=== PATIENT | female | born 1930 | race Caucasian/White ===

== ENCOUNTER → 2016-07-01 | Outpatient (CLI) | payer MEDICARE ==
[~2016-07-01] MED LIST: ACETAMINOPHEN650 MG RC; ACETAZOLAMIDE250 MG PO; AGGRENOX 25 MG-1 CER PO; ALBUTEROL 3 ML 33 ML INH; ALEVE220 MG PO; AMBIEN5 MG PO; ANASPAZ0.125 MG SL; ASCRIPTIN325 MG; ASPERDRINK81 MG PO; ASPIRIN LOW DOS81 M1 PO; ASPIRIN81 M1 PO; BENADRYL25 M1 PO; BENADRYL25 M2 PO; CARAFATE1 G1 PO; CITRACAL + D 311 TAB PO; CITRACAL ULTRAD1 TA1 PO; COUMADIN1 M1 PO; COUMADIN2 M1 PO; DARVOCET N 1001 TAB PO; DIAMOX125 MG PO; DIOVAN160 M1 PO; DOXYCYCLINE100 M3 PO; Duoneb 3ML 3 MG/3 ML INH; FLEET ENEMA 13135 ML R; GLYCERIN SUPPOS1 SU4 RC; HYDRALAZINE10 MG PO; HYOSCYAMINE0.125 M5 PO; HYPERTENSION MED; IMDUR SA60 M1 PO; IMDUR30 MG PO; JANTOVEN1 MG PO; K-Dur 20MEQ20 MEQ PO; KRISS PO; LABETALOL HCL100 MG PO; LABETALOL200 MG PO; LASIX20 MG PO; LASIX40 MG PO; LIDODERM 5% PATC1 EA PO; LIDODERM 5% PATC1 EA T; LISINOPRIL10 MG PO; LISINOPRIL20 MG PO; LOTREL 10 MG-201 CAP PO; MACROBID100 M1 PO; METOPROLOL50 MG PO; MOBIC7.5 MG PO; MOM30 ML PO; MOTRIN800 MG PO; MUCINEX DM 30/61 TAB PO; NEURONTIN300 MG PO; NEXIUM40 MG PO; NORCO 5-325 TA1 EACH PO; NORTRIPTYLINE10 MG PO; NORVASC10 MG PO; NORVASC5 MG PO; OMEPRAZOLE20 MG PO; OSCAL ULTRA 6001 TA1 PO; OSCAL/D,OYSTER250 MG PO; OXYGEN; PREDNICOT20 MG PO; PREDNISONE10 MG PO; PROAIR HFA8.5 GM IH; PROTONIX40 MG PO; PYRIDIUM200 MG PO; RESTORIL15 MG PO; SENNA LAX8.6 M1 PO; SIMVASTATIN20 MG PO; SOAP SUDS ENEMA R; SYMBICORT1 AE1 INH; SYNTHROID,LEVO88 MCG PO; SYNTHROID0.1 MG PO; Synthroid,Levo75 MCG PO; TYLENOL325 M1 PO; UNKNOWN INHALER; VENTOLIN 02.5 MG/3 M INH; VENTOLIN 02.5 MG/3 M NEB; VICO10300 PO; VICODIN 500 MG-1 TAB PO; VITAMIN D1000 IU PO; VITAMIN D2000 IU PO; WATER PILL; ZITHROMAX Z PA250 MG PO
[2016-07-01 15:32] LABS: BASO % 0.3 % (0.0-1.0); EOS # 0.8 10*3/uL (0.0-0.4); EOS % 12.5 % (1.0-4.0); HEMATOCRIT 34.5 % (37.0-47.0); HEMOGLOBIN 11.5 g/dl (12.0-16.0); LYMPH % 16.4 % (27.0-41.0); MEAN CELL VOLUME 89.8 fl (81.0-99.0); MEAN CORPUSCULAR HGB 29.9 pg (27.0-31.0); MEAN CORPUSCULAR HGB CONC 33.3 g/dl (33.0-37.0); MEAN PLATELET VOLUME 11.4 fl (9.6-12.3); MONO # 0.5 10*3/uL (0.1-1.0); MONO % 7.3 % (3.0-9.0); NEUT # 3.9 10*3/uL (2.3-7.9); NEUT % 63.2 % (47.0-73.0); PLATELET COUNT AUTOMATED 167 10*3/uL (130-400); RED BLOOD COUNT 3.84 10*6/uL (4.10-5.10); RED CELL DISTRI WIDTH 13.8 % (0-14.5); WHITE BLOOD COUNT 6.2 10*3/uL (4.8-10.8)
== END | disposition home or self-care (01) ==
LOC: LAB 15:17
PROVIDERS: Nurse Practitioner Family
DX: D64.9 Anemia, unspecified (principal); R53.83 Other fatigue

== ENCOUNTER → 2016-07-19 | Outpatient (CLI) | payer MEDICARE ==
[2016-07-19 10:17] LABS: POTASSIUM 4.5 mmol/L (3.5-5.1)
== END | disposition home or self-care (01) ==
LOC: LAB 09:40
PROVIDERS: Internal Medicine
DX: E87.6 Hypokalemia (principal)

== ENCOUNTER → 2016-10-03 | Outpatient (CLI) | payer MEDICARE | END | disposition home or self-care (01) | LOC: CARD 02:11 | DX: I05.2 Rheumatic mitral stenosis with insufficiency (principal); R06.00 Dyspnea, unspecified ==

== ENCOUNTER → 2016-11-14 | Outpatient (CLI) | payer MEDICARE | END | disposition home or self-care (01) | LOC: LAB 13:03 | DX: D86.0 Sarcoidosis of lung (principal) ==

== ENCOUNTER → 2017-10-17 | Outpatient (CLI) | payer MEDICARE ==
[~2017-10-17] MED LIST changes: +ATORVASTATIN CA20 M1 PO; +CARDIZEM CD240 M1 PO; +IMDUR SA30 MG PO; +NITROSTAT0.4 MG SL; +PANTOPRAZOLE SO40 MG PO; +WARFARIN2 MG PO
--- NOTE | ~2017-10-17 | ST ---
[place], [place] EXERCISE STRESS TEST REPORT [id number] UN[facility] #: [id number] ROOM: DOCTOR: NERY BRAY MD BIRTHDATE: [birth year] DOS: 10/17/2017 LEXISCAN PORTION OF THE LEXISCAN CARDIOLITE Baseline cardiogram is sinus rhythm with a complete left bundle-branch pattern, 0.4 mg Lexiscan, duration of 10 seconds with Lexiscan, no new EKG changes. The patient did have few runs of tachyarrhythmia. Blood pressure and heart rate response was normal. Did have some shortness of breath. FINAL IMPRESSION: Indeterminate test secondary to the underlying left bundle branch block. No new EKG changes. Blood pressure and heart rate response was normal. Positive shortness of breath. Nuclear images will be reported separately. NERY BRAY MD CM:STRESS:EXERCISE STRESS TEST REPORT [id number] NERY BRAY MD
== END | disposition home or self-care (01) ==
LOC: CARD 01:56
DX: I20.8 Other forms of angina pectoris (principal); R53.81 Other malaise

== ENCOUNTER → 2018-09-19 | Outpatient (CLI) | payer MEDICARE | END | disposition home or self-care (01) | LOC: RAD 14:57 | DX: M47.816 Spondylosis without myelopathy or radiculopathy, lumbar region (principal); M25.552 Pain in left hip ==

== ENCOUNTER 2018-10-16 19:03 | Inpatient (IN) | payer MEDICARE, MEDICAID ==
[~2018-10-16] VITALS: Ht 167.6 cm; Wt 58.3 kg
--- NOTE | ~2018-10-16 | EKG ---
[place], [place] ELECTROCARDIOGRAM REPORT NAME: MONA BAILEY UNIT #: [id number] ROOM: 407 DOCTOR: DULCE DRAFT REPORT BIRTHDATE: [birth year] [facility] Test Date: 2018-10-16 Test Time: 19:48:34 Pat Name: MONA BAILEY Department: Room: 407 Gender: F General Laborer: BUDDY : 1930 Requested By: DARIEL PATEL Order Number: [id number] Reading MD: Jamie Rojas MD Measurements Intervals [place] Rate: 82 P: -45 MS: 169 QRS: -20 QRSD: 132 T: 136 QT: 424 QTc: 496 Interpretive Statements Ectopic atrial rhythm Atrial premature complex Left bundle branch block Electronically Signed On 10-23-2018 4:02:08 PDT by Jamie Rojas MD CM:EKGRPT:ELECTROCARDIOGRAM REPORT [id number] DARIEL PATEL MD EPIPHANY DRAFT REPORT DARIEL PATEL MD
--- NOTE | 2018-10-16 11:55 | NUR ---
PT'S BP ELEVATED; CALL DR. GONSALVES. ORDER RECEIVED FOR HYDRALAZINE 5 MG PO.
[2018-10-16 19:05] VITALS: BP 176/77
[2018-10-16 19:51] LABS: BASO % 0.3 % (0.0-1.0); EOS # 0.1 10*3/uL (0.0-0.4); EOS % 4.3 % (1.0-4.0); HEMATOCRIT 36.7 % (37.0-47.0); HEMOGLOBIN 11.8 g/dl (12.0-16.0); LYMPH # 0.9 10*3/uL (1.3-4.4); LYMPH % 28.2 % (27.0-41.0); MEAN CELL VOLUME 92.2 fl (81.0-99.0); MEAN CORPUSCULAR HGB 29.6 pg (27.0-31.0); MEAN CORPUSCULAR HGB CONC 32.2 g/dl (33.0-37.0); MEAN PLATELET VOLUME 10.5 fl (9.6-12.3); MONO # 0.3 10*3/uL (0.1-1.0); MONO % 9.2 % (3.0-9.0); NEUT # 1.9 10*3/uL (2.3-7.9); PLATELET COUNT AUTOMATED 202 10*3/uL (130-400); RED BLOOD COUNT 3.98 10*6/uL (4.10-5.10); RED CELL DISTRI WIDTH 13.2 % (0-14.5); WHITE BLOOD COUNT 3.3 10*3/uL (4.8-10.8)
[2018-10-16 20:07] LABS: ALBUMIN 2.8 gm/dl (3.1-4.5); ALKALINE PHOSPHATASE 125 U/L (45-117); BUN 13 mg/dl (7-24); CHLORIDE 103 mmol/L (98-107); CREATININE 1.22 mg/dL (0.55-1.02); LIPASE 56 U/L (73-393); POTASSIUM 3.7 mmol/L (3.5-5.1); SGOT/AST 12 IU/L (3-35); SGPT/ALT 11 U/L (12-78); SODIUM 139 mmol/L (136-145); TOTAL PROTEIN 6.4 gm/dL (6.4-8.2)
[2018-10-16 20:10] LABS: TROPONIN I < 0.015 ng/ml (<0.045)
[2018-10-16 20:11] LABS: ACT PARTIAL THROMBO TIME 56.4 SECONDS (20.0-32.1)
--- NOTE | 2018-10-16 20:18 | NUR ---
PROMPTED PATIENT FOR URINE AT THIS TIME, PER PATIENT UNABLE TO URINATE AT THIS TIME. PATIENT RESTING IN BED WITH FAMILY AT THE BEDSIDE. RESPIRATIONS EASY, NON-LABORED ON ROOM AIR. IV FLUIDS INFUSING PER ORDERS. CALL LIGHT WITHIN REACH. RN WILL CONTINUE TO MONITOR.
[2018-10-16 20:21] LABS: INTERNATIONAL NORM RATIO 9.3 (2.0-3.5)
--- NOTE | 2018-10-16 20:22 | NUR ---
CRITICAL INR 9.3, DR FRANCO AWARE
[2018-10-16 21:19] VITALS: BP 190/79
[2018-10-16 21:24] LABS: BILIRUBIN NEGATIVE (NEGATIVE); BLOOD 2+ (NEGATIVE); CLARITY CLEAR (CLEAR); COLOR YELLOW (YELLOW); GLUCOSE NEGATIVE (NEGATIVE); KETONE NEGATIVE (NEGATIVE); LEUKO ESTERASE NEGATIVE (NEGATIVE); NITRITE NEGATIVE (NEGATIVE); PH 5.5 (5.0-9.0); SPECIFIC GRAVITY <= 1.005 (1.005-1.030); UROBILINOGEN 0.2 E.U./dl (0.2-1.0)
[2018-10-16 21:33] LABS: BACTERIA TRACE; WBC 0-2 wbc/hpf (0-5)
[2018-10-16 22:05] VITALS: BP 167/78
--- NOTE | 2018-10-16 22:11 | NUR ---
HEALING SCAB NOTED TO LEFT ELBOW, NO OPEN AREAS NOTED TO PATIENT BUTTOCK
[2018-10-16 23:00] VITALS: BP 182/80; BP 186/68
--- NOTE | 2018-10-16 23:00 | NUR ---
A 88, admitted to 4E, under the services of ALEXI Pollack DO with a diagnosis of GI BLEED. Chief complaint is HIGH INR. Patient arrived via stretcher from ER. Monitor applied. Initial assessment completed. Vital signs taken and recorded. ALEXI POLLACK DO notified of admission to the unit. Orders received. See assessment for past medical history, medications and allergies. Patient and/or family oriented to unit. [facility] visitation policy reviewed. Clothing/patient valuable form completed. ABI DREW
--- NOTE | 2018-10-16 23:20 | NUR ---
NOTIFIED DR. GONSALVES OF PT'S ELEVATED BP; ORDER RECEIVED FOR HYDRALAZINE 5 MG PO.
--- NOTE | 2018-10-16 23:30 | NUR ---
INFORMED DR. BOURGEOIS THAT PATIENT DOES NOT KNOW WHAT MEDICATIONS SHE TAKES. MED REC WILL HAVE TO BE UPDATED IN THE MORNING. PT. USES [facility] [employer] [facility].
--- NOTE | 2018-10-17 00:25 | NUR ---
MEDICATED WITH RESTORIL FOR C/O INSOMNIA & HYDRALAZINE FOR ELEVATED BP. IV FLUIDS INFUSING ORDERED; SITE ASYMPTOMATIC.
[2018-10-17 04:00] VITALS: BP 176/72
--- NOTE | 2018-10-17 04:01 | NUR ---
PT. REFUSES JESSE DIAL/JUDIT'S.
--- NOTE | 2018-10-17 04:05 | NUR ---
CALLED DR. GONSALVES WITH PATIENT'S ELEVATED BP.
--- NOTE | 2018-10-17 05:04 | NUR ---
MEDICATED WITH APRESOLINE FOR ELEVATED BP.
--- NOTE | 2018-10-17 06:38 | NUR ---
INFORMED DR. GONSALVES OF PT'S SCABBED AREA ON LEFT ARM. WOUND CLEANSED & BANDAID APPLIED EARLIER IN SHIFT.
--- NOTE | 2018-10-17 06:49 | NUR ---
MONA BAILEY [id number] Please refer to the physician's history and physical for past medical history, comorbid conditions, and allergies. Diagnosis: RECTAL BLEED WARFARIN-INDUCED COAGULOPATHY Basim Score: 19,LOW OR NO RISK WOUND DESCRIPTIONS: Wound Number: 1 Location of the wound: left arm Type of wound: skin tear Thickness: Partial Size: 1.5cm x 0.8cm x 0.1cm Tunneling: none Undermining: none Sinus Tract: none Presence of Exudate: Sanguineous Amount: Light Color: Red Odor: None Periwound Skin Appearance: Normal Wound edges: approximated Pain (associated with wound): none at time of assessment How does patient state this happened? pt stated she bumped her arm Surface the patient is resting on: Position Pro SKIN PREVENTION RECOMMENDATION: 1. Pressure redistribution support surface as appropriate 2. Elevate heels 3. Remove boots/TEDS every shift and reapply 4. Head of bed 30 degrees as tolerated 5. Assess nutrition and hydration 6. Manage moisture 7. Avoid the use of containment devices while in bed 8. Use absorptive products on surfaces limit layers of linens on bed 9. Turn and reposition every 1-2 hours in bed and every 1 hour in chair as tolerated 10. Weight shifts every 15 minutes while up in chair 11. Offloading with pillows or device to keep heels elevated off bed 12. Monitor skin at least every shift 13. Inspect under medical devices twice a day WOUND TREATMENT RECOMMENDATIONS: Skin tear guidelines: Cleanse left arm with nss and apply sureprep around the wound hydrogel to wound bed and cover with optifoam gentle.
[2018-10-17 07:02] LABS: BASO % 0.3 % (0.0-1.0); EOS # 0.1 10*3/uL (0.0-0.4); EOS % 3.6 % (1.0-4.0); HEMATOCRIT 35.7 % (37.0-47.0); HEMOGLOBIN 11.5 g/dl (12.0-16.0); MEAN CORPUSCULAR HGB 29.9 pg (27.0-31.0); MEAN CORPUSCULAR HGB CONC 32.2 g/dl (33.0-37.0); MEAN PLATELET VOLUME 10.5 fl (9.6-12.3); MONO # 0.3 10*3/uL (0.1-1.0); MONO % 9.6 % (3.0-9.0); NEUT # 1.9 10*3/uL (2.3-7.9); NEUT % 57.2 % (47.0-73.0); PLATELET COUNT AUTOMATED 186 10*3/uL (130-400); RED BLOOD COUNT 3.84 10*6/uL (4.10-5.10); RED CELL DISTRI WIDTH 13.2 % (0-14.5); WHITE BLOOD COUNT 3.3 10*3/uL (4.8-10.8)
[2018-10-17 07:41] LABS: ALBUMIN 2.6 gm/dl (3.1-4.5); ALKALINE PHOSPHATASE 114 U/L (45-117); BUN 11 mg/dl (7-24); CHLORIDE 107 mmol/L (98-107); CREATININE 0.94 mg/dL (0.55-1.02); PHOSPHOROUS 3.6 mg/dL (2.5-4.9); POTASSIUM 3.4 mmol/L (3.5-5.1); SGOT/AST 11 IU/L (3-35); SGPT/ALT 13 U/L (12-78); SODIUM 141 mmol/L (136-145); TOTAL PROTEIN 5.8 gm/dL (6.4-8.2)
[2018-10-17 07:48] LABS: INTERNATIONAL NORM RATIO 2.6 (2.0-3.5)
[2018-10-17 08:00] VITALS: BP 156/60
--- NOTE | 2018-10-17 09:00 | NUR ---
Typesetting Supervisor in to talk to patient. Patient states lives at home with alone. There are few steps in the home. Physician: jessica mcmahon Pharmacy: [facility] health services: none Patient's level of ADLs: INDEPENDENT Patient has working utilities: all working DME: cane, walker, nebulizer, cpap Follow-up physician's appointment after d/c: will be made by hospitalist nurse director upon discharge Does patient want to access PORTAL?: no Discharge plan discussed with patient, patient lives at home alone, she is independent in adls and ambualtion, doesn't drive but has family and friends that take her to appointment and anywhere else she needs to go, patient states she will be going home when able, also discussed with her VNA and she stated she has had VNA services in the past and doesn't feel she needs them at this time, case management will follow. RORY AGUILAR
--- NOTE | 2018-10-17 09:50 | NUR ---
Dr. Rodriguez notified of wound care recommendations.
--- NOTE | 2018-10-17 14:05 | NUR ---
The Discharge Plan/Instructions have been completed.
== END 2018-10-17 14:05 | disposition home or self-care (01) | DRG 813 ==
LOC: ED 19:03 → 4E 22:24 → EDHOLD 22:24 → 4E 22:56
PROVIDERS: Emergency Medicine Emergency Medical Services; Student in an Organized Health Care Education/Training Program; ADMIT Emergency Medicine
DX: D68.32 Hemorrhagic disorder due to extrinsic circulating anticoagulants (principal); K62.5 Hemorrhage of anus and rectum; T45.515A Adverse effect of anticoagulants, initial encounter; K21.9 Gastro-esophageal reflux disease without esophagitis; N18.3 Chronic kidney disease, stage 3 (moderate); D64.9 Anemia, unspecified; J44.9 Chronic obstructive pulmonary disease, unspecified; I12.9 Hypertensive chronic kidney disease with stage 1 through stage 4 chronic kidney disease, or unspecified chronic kidney disease; Z90.710 Acquired absence of both cervix and uterus; Z90.49 Acquired absence of other specified parts of digestive tract; Z95.1 Presence of aortocoronary bypass graft; Z82.49 Family history of ischemic heart disease and other diseases of the circulatory system; Z88.2 Allergy status to sulfonamides; Z82.3 Family history of stroke; Z86.718 Personal history of other venous thrombosis and embolism; Z86.73 Personal history of transient ischemic attack (TIA), and cerebral infarction without residual deficits; Z79.82 Long term (current) use of aspirin; Z80.9 Family history of malignant neoplasm, unspecified; Y92.89 Other specified places as the place of occurrence of the external cause

== ENCOUNTER → 2018-10-16 | Outpatient (CLI) | payer MEDICARE, MEDICAID ==
[2018-10-16 17:15] LABS: INTERNATIONAL NORM RATIO > 9.3 (2.0-3.5)
== END | disposition home or self-care (01) ==
LOC: LAB 15:46
PROVIDERS: Physician Assistant
DX: I48.0 Paroxysmal atrial fibrillation (principal)

== ENCOUNTER → 2019-03-26 | Outpatient (CLI) | payer MEDICARE | END | disposition home or self-care (01) | LOC: CT 03-18 11:00 | DX: K57.92 Diverticulitis of intestine, part unspecified, without perforation or abscess without bleeding (principal); I25.10 Atherosclerotic heart disease of native coronary artery without angina pectoris; M54.42 Lumbago with sciatica, left side; I10 Essential (primary) hypertension; G89.29 Other chronic pain; K21.9 Gastro-esophageal reflux disease without esophagitis; N26.1 Atrophy of kidney (terminal); R63.4 Abnormal weight loss; Z90.710 Acquired absence of both cervix and uterus ==

== ENCOUNTER → 2019-05-01 | Day surgery (SDC) | payer MEDICARE ==
[~2019-05-01] VITALS: Ht 167.6 cm; Wt 55.3 kg
[2019-05-01 07:00] VITALS: BP 149/78; BP 179/70
[2019-05-01 07:52] VITALS: BP 119/39
[2019-05-01 08:07] VITALS: BP 142/56
[2019-05-01 08:22] VITALS: BP 142/52
== END | disposition home or self-care (01) ==
LOC: SDC 04-26 13:15
DX: K29.50 Unspecified chronic gastritis without bleeding (principal); K44.9 Diaphragmatic hernia without obstruction or gangrene; I25.10 Atherosclerotic heart disease of native coronary artery without angina pectoris; J44.9 Chronic obstructive pulmonary disease, unspecified; K21.9 Gastro-esophageal reflux disease without esophagitis; I25.2 Old myocardial infarction; Z86.73 Personal history of transient ischemic attack (TIA), and cerebral infarction without residual deficits; Z98.890 Other specified postprocedural states; Z95.5 Presence of coronary angioplasty implant and graft; Z79.899 Other long term (current) drug therapy; Z82.49 Family history of ischemic heart disease and other diseases of the circulatory system; Z83.3 Family history of diabetes mellitus; Z82.3 Family history of stroke

== ENCOUNTER 2019-12-26 15:32 | Emergency (ER) | payer MEDICARE ==
[~2019-12-26] VITALS: Wt 51.7 kg
[2019-12-26 15:36] VITALS: BP 131/61
[2019-12-26 16:11] LABS: BASO % 0.2 % (0.0-1.0); EOS % 0.6 % (1.0-4.0); HEMATOCRIT 35.7 % (37.0-47.0); LYMPH % 19.1 % (27.0-41.0); MEAN CELL VOLUME 90.2 fl (81.0-99.0); MEAN CORPUSCULAR HGB 28.8 pg (27.0-31.0); MEAN CORPUSCULAR HGB CONC 31.9 g/dl (33.0-37.0); MEAN PLATELET VOLUME 10.8 fl (9.6-12.3); MONO # 0.4 10*3/uL (0.1-1.0); MONO % 8.3 % (3.0-9.0); NEUT # 3.7 10*3/uL (2.3-7.9); NEUT % 71.6 % (47.0-73.0); PLATELET COUNT AUTOMATED 206 10*3/uL (130-400); RED BLOOD COUNT 3.96 10*6/uL (4.10-5.10); RED CELL DISTRI WIDTH 15.1 % (0-14.5); WHITE BLOOD COUNT 5.1 10*3/uL (4.8-10.8)
[2019-12-26 16:22] LABS: ACT PARTIAL THROMBO TIME 39.8 SECONDS (20.0-32.1); INTERNATIONAL NORM RATIO 4.1 (2.0-3.5)
[2019-12-26 16:25] LABS: ALBUMIN 2.4 gm/dl (3.1-4.5); CREATININE 1.1 mg/dL (0.55-1.02); POTASSIUM 3.9 mmol/L (3.5-5.1); TOTAL PROTEIN 5.7 gm/dL (6.4-8.2)
== END 2019-12-26 19:25 | disposition home or self-care (01) ==
LOC: ED 15:32
PROVIDERS: Emergency Medicine
DX: D68.2 Hereditary deficiency of other clotting factors (principal); R60.0 Localized edema; I25.10 Atherosclerotic heart disease of native coronary artery without angina pectoris; J44.9 Chronic obstructive pulmonary disease, unspecified; I10 Essential (primary) hypertension; K21.9 Gastro-esophageal reflux disease without esophagitis; Z79.899 Other long term (current) drug therapy; Z79.82 Long term (current) use of aspirin; Z90.710 Acquired absence of both cervix and uterus; Z95.1 Presence of aortocoronary bypass graft